=== PATIENT | female | born 1995 | race Caucasian/White ===

== ENCOUNTER 2022-10-20 23:32 | Day surgery (SDC) | payer SELFPAY ==
[2022-10-20 23:46] VITALS: BMI 25.2
== END 2022-10-21 02:15 | disposition home or self-care (01) ==
LOC: CSHLD/OP 23:32
PROVIDERS: ATTEND Obstetrics & Gynecology
DX: O47.1 False labor at or after 37 completed weeks of gestation (principal); Z88.0 Allergy status to penicillin; Z88.1 Allergy status to other antibiotic agents; Z91.010 Allergy to peanuts; Z79.899 Other long term (current) drug therapy; Z3A.38 38 weeks gestation of pregnancy
CPT/HCPCS: 99283

== ENCOUNTER 2022-10-26 14:08 | Inpatient (IN) | payer OTHER ==
[2022-10-26 20:21] VITALS: BMI 25.7
[2022-10-26] MEDS ORDERED: fentaNYL 50 mcg/mL 1 mL Vial SLOW IVP PRN (20:23)
[2022-10-26] MEDS ORDERED: Zolpidem Tartrate 5 MG TAB PO PRN (20:23)
[2022-10-26] MEDS ORDERED: Carboprost 250 MCG/ML AMP IM PRN (20:23)
[2022-10-26] MEDS ORDERED: Ondansetron PF 4 MG/2 ML Vial IVP PRN (20:23)
[2022-10-26] MEDS ORDERED: Methylergonovine 0.2 MG/ML VIAL IM PRN (20:23)
[2022-10-26] MEDS ORDERED: Promethazine HCl 25 MG/ML VIAL IM PRN (20:23)
[2022-10-26] MEDS ORDERED: HYDROcodone/Acetaminophen 5/325 mg Tablet PO PRN ×2 (20:23)
[2022-10-26] MEDS ORDERED: Tranexamic Acid 1,000 MG/10 ML VIAL IVP PRN (20:23)
[2022-10-26] MEDS ORDERED: hydrALAZINE 20 MG/ML VIAL SLOW IVP PRN (20:23)
[2022-10-26] MEDS ORDERED: Ibuprofen 800 MG TAB PO PRN (20:23)
[2022-10-26] MEDS ORDERED: Acetaminophen 500 MG TAB PO PRN (20:23)
[2022-10-26] MEDS ORDERED: Misoprostol 200 MCG TAB PR PRN (20:23)
[2022-10-26] MEDS ORDERED: Diphenoxylate HCl/Atropine Tablet PO PRN ×2 (20:23)
[2022-10-26] MEDS ORDERED: Lidocaine 1% (PF) 30 ML VIAL SC PRN (20:23)
[2022-10-26] MEDS ORDERED: Oxytocin 30 units/NS 500 ML 500 ML IV SCH ×2 (21:00)
[2022-10-26] MEDS: Misoprostol 100 MCG TAB VAG SCH (21:20)
[2022-10-26 21:25] LABS: HBSAg Index 0.16 S/CO (0-0.99); Hep B Surf Ag - L&D Non-Reactive S/CO (NonReactive)
[2022-10-26 21:26] LABS: Hematocrit 38.8 % (34.9-44.5); Hemoglobin 13.5 g/dL (12.0-15.5); Mean Corpuscular HGB CONC 34.8 g/dL (32.0-36.0); Mean Corpuscular Hemoglobin 32.3 pg (27.0-33.0); Mean Corpuscular Volume 92.8 fl (81.6-98.3); Mean Platelet Volume 12.1 fl (7.4-10.4); Platelet Count 226 10x3/uL (150-450); RBC Distribution Width 13.1 % (11.5-14.5); Red Blood Cell (RBC) Count 4.18 10x6/uL (3.90-5.03); White Blood Cell (WBC) Count 9.8 10x3/uL (3.5-10.5)
[2022-10-26 21:52] LABS: Syphilis Antibody Nonreactive (Nonreactive); Syphilis Antibody Index 0.06 S/CO (<1.00 Non-Reactive)
[2022-10-26] MEDS ORDERED: Penicillin G Potassium 5 MILL.UNITS in Sodium Chloride 0.9% 100 ML IVPB SCH (22:00)
[2022-10-27] MEDS: Misoprostol 100 MCG TAB VAG SCH ×2 (00:40→05:26)
[2022-10-27] MEDS: Penicillin G 2.5 MILL.units 2.5 MILL.UNITS in Premix Bag 1 BAG IVPB SCH ×4 (02:07→16:38)
[2022-10-27] MEDS ORDERED: fentaNYL/Ropivacaine Epidural 100 ML ONE (09:41)
[2022-10-27] MEDS ORDERED: Moisturizing Cream (Eucerin) 113 GM JAR TOP PRN (10:14)
[2022-10-27] MEDS ORDERED: ePHEDrine Sulfate 50 MG/10 ML VIAL SLOW IVP PRN (10:14)
[2022-10-27] MEDS ORDERED: Promethazine HCl 25 MG/ML VIAL IM PRN (10:14)
[2022-10-27] MEDS ORDERED: Acetaminophen 325 MG TAB PO PRN (10:14)
[2022-10-27] MEDS ORDERED: diphenhydrAMINE 50 MG/ML VIAL IVP PRN (10:14)
[2022-10-27] MEDS ORDERED: Naloxone HCl 0.4 mg/ml Vial IVP PRN ×2 (10:14)
[2022-10-27] MEDS ORDERED: Lactated Ringer's 500 ML IV PRN (10:14)
[2022-10-27] MEDS ORDERED: Ondansetron PF 4 MG/2 ML Vial IVP PRN (10:14)
[2022-10-27] MEDS ORDERED: Communication Order-Pharmacy FS SCH (10:15)
[2022-10-27] MEDS ORDERED: fentaNYL 2 mcg/Ropivacaine 0.2% Epidural 100 ML CADD EPIDURAL SCH (10:15)
[2022-10-27] MEDS: Lactated Ringer's 1,000 ML IV SCH (11:36)
[2022-10-27] MEDS ORDERED: Lanolin Ointment 7 GM TUBE TOP PRN (22:15)
[2022-10-27] MEDS ORDERED: hydrALAZINE 20 MG/ML VIAL SLOW IVP PRN (22:15)
[2022-10-27] MEDS ORDERED: Milk Of Magnesia 30 ML UDCUP PO PRN (22:15)
[2022-10-27] MEDS ORDERED: Boostrix 0.5 ML (Tdap) VIAL (>/=7 yrs of age) IM ONE (22:15)
[2022-10-27] MEDS ORDERED: Benzocaine-Menthol 82.5 ML CAN TOP PRN (22:15)
[2022-10-27] MEDS ORDERED: traMADol HCl 50 MG TAB PO PRN (22:15)
[2022-10-27] MEDS ORDERED: diphenhydrAMINE 25 MG CAP PO PRN (22:15)
[2022-10-27] MEDS ORDERED: Bisacodyl 10 MG SUPP PR PRN (22:15)
[2022-10-27] MEDS ORDERED: Preparation H Ointment 28 GM TUBE PR PRN (22:15)
[2022-10-28] MEDS: Ibuprofen 800 MG TAB PO SCH ×2 (06:19→13:06)
[2022-10-28] MEDS: Ferrous Sulfate 325 MG TAB PO SCH ×2 (07:23→15:55)
[2022-10-28] MEDS: Lactated Ringer's 1,000 ML IV SCH ×2 (07:25→07:26)
[2022-10-28] MEDS: Misoprostol 100 MCG TAB VAG SCH ×2 (07:26→07:27)
[2022-10-28] MEDS: Penicillin G 2.5 MILL.units 2.5 MILL.UNITS in Premix Bag 1 BAG IVPB SCH (07:27)
[2022-10-28] MEDS ORDERED: Bupivacaine 0.25% HCL 30 ML VIAL ONE (08:00)
[2022-10-28] MEDS: Prenatal Vitamin 1 TAB PO SCH (08:56)
[2022-10-28] MEDS: Docusate 100 MG CAP PO SCH ×2 (08:56→21:01)
[2022-10-28] MEDS ORDERED: Witch Hazel-Glycerin 1 EACH JAR TOP PRN (11:48)
[2022-10-29] MEDS: Ibuprofen 800 MG TAB PO SCH ×2 (04:21→06:07)
[2022-10-29] MEDS: Ferrous Sulfate 325 MG TAB PO SCH (07:21)
[2022-10-29 07:42] VITALS: BP 114/75; TEMP 98.7
[2022-10-29] MEDS: Docusate 100 MG CAP PO SCH (09:11)
[2022-10-29] MEDS: Prenatal Vitamin 1 TAB PO SCH (09:11)
== END 2022-10-29 12:16 | disposition home or self-care (01) | DRG 807 ==
LOC: CSHLD 19:07 → CSHPP 10-28 00:43
PROVIDERS: ADMIT Obstetrics & Gynecology; ATTEND Obstetrics & Gynecology
PROC: 10E0XZZ Delivery of Products of Conception, External Approach (ICD-10-PCS; principal; 2022-10-27)
PROC: 3E0P7VZ Introduction of Hormone into Female Reproductive, Via Natural or Artificial Opening (ICD-10-PCS; 2022-10-27)
PROC: 0UQGXZZ Repair Vagina, External Approach (ICD-10-PCS; 2022-10-27)
PROC: 3E033XZ Introduction of Vasopressor into Peripheral Vein, Percutaneous Approach (ICD-10-PCS; 2022-10-27)
PROC: 3E03329 Introduction of Other Anti-infective into Peripheral Vein, Percutaneous Approach (ICD-10-PCS; 2022-10-27)
DX: O99.824 Streptococcus B carrier state complicating childbirth (principal); O71.4 Obstetric high vaginal laceration alone; Z37.0 Single live birth; Z3A.39 39 weeks gestation of pregnancy
CPT/HCPCS: 51702; 85027; 86780; 86850; 86900; 86901; 87340; J2540; J2590; J3490; J7120; S0020